=== PATIENT | female | born 1955 | race Caucasian/White ===

== ENCOUNTER 2017-10-20 08:36 | Observation (INO) ==
[2017-10-20] MEDS ORDERED: Pantoprazole 40 MG VIAL IVP ONE (09:11)
--- NOTE | 2017-10-20 09:33 | Emergency Department Note ---
Disposition Clinical Impression: Chest pain Qualifiers: Qualified Code(s): R07.9 - Disposition: Admitted As Inpatient Condition: Good Referrals: Jennifer Morin MD [Primary Care Provider] - Forms: ED Satisfaction Letter Chest Pain HPI - General Chief Complaint: ED Chest Pain Stated Complaint: chest pain Time Seen by Provider: 10/20/17 08:57 Source: patient Limitations: no limitations Vital Signs Reviewed: Yes Nursing Notes Reviewed: Yes - History of Present Illness HPI Narrative: 62 year old female presents with chest pain. pt stated it was intermittent sharp pain on her chest radiate to upper abdomen, back and left shoulder. 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 No exacerbation with activity. No cough. No chill and fever. Pt had sinus congestion and right ear pain in the past one week. She finished one course of Z-pack and prednisone without improvement. She visited urgent care last Friday and was prescribed Doxycycline. Pt denied history of hypertension and diabetes. She has family history of heart disease. Pt complaint: chest pain Onset (ago): day(s) (2) Duration: intermittent Pain Location: left chest, epigastric Severity scale (1-10): 8 Quality: sharp Pain Radiation: LUE, back Improves with: nothing Worsens with: nothing - Related Data Home Medications Medication Instructions Recorded Confirmed Estradot 37.5 mcg TD QWEEK 10/20/17 10/20/17 Fluticasone Propionate Nasal 2 spr NS DAILY 10/20/17 10/20/17 [Flonase] Loratadine [Claritin] 10 mg PO DAILY 10/20/17 10/20/17 Pseudoephedrine HCl [Sudafed] 30 mg PO Q6H PRN 10/20/17 10/20/17 predniSONE [PredniSONE] 20 mg PO DAILY 10/20/17 10/20/17 Previous Rx's Medication Instructions Recorded Doxycycline 100 mg PO BID 10 Days #20 capsule 10/17/17 Allergies Allergy/AdvReac Type Severity Reaction Status Date / Time cephalexin [From Keflex] Allergy Hives Verified 10/20/17 08:40 clindamycin Allergy Hives Verified 10/20/17 08:40 Penicillins Allergy Hives Verified 10/20/17 08:40 Sulfa (Sulfonamide Allergy Hives Verified 10/20/17 08:40 Antibiotics) Erythromycin Base [From Eryc] AdvReac Gastrointestinal Verified 10/20/17 14:56 Upset Constitutional: Denies: fever, chills, weakness Eyes: Denies: eye pain, eye discharge ENT ED: Reports: ear pain, congestion. Denies: throat pain, dental pain, hearing loss Cardiovascular: Reports: chest pain. Denies: palpitations, dyspnea on exertion , syncope Respiratory: Denies: cough, dyspnea, wheezes Gastrointestinal: Denies: abdominal pain, nausea, vomiting Genitourinary: Denies: urgency, dysuria, frequency Musculoskeletal: Denies: back pain, neck pain, joint swelling Integumentary: Denies: rash, abrasion, lesions Neurological: Denies: headache, weakness Psychiatric: Denies: anxiety, depression, suicidal thoughts Endocrine: Denies: fatigue, heat or cold intolerance Hematological/Lymphatic: Denies: easy bleeding, easy bruising Allergic/Immunologic: Denies: facial swelling, urticaria Chest Pain PMH - Past Medical History Medical history: Reports: renal disease Psychiatric history: Reports: no psych history 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 Absent: scleral icterus, conjunctival injection - Expanded ENT Exam TM/Canal: Erythema: Negative, Bulging: Negative, Effusion: Bilateral TM, Perforation: Negative Nose exam: sinus tenderness (bilateral Maxillary tender) Mouth exam: Present: normal external inspection Throat exam: Present: normal inspection, tonsillar erythema - Neck Neck exam: Present: normal inspection, full ROM, trachea midline. Absent: tenderness - Chest Chest inspection: Present: normal inspection, symmetric chest wall rise. Absent : tenderness - Respiratory Respiratory exam: Present: normal lung sounds bilaterally. Absent: respiratory distress, wheezes - Cardiovascular Cardiovascular exam: Present: regular rate, normal rhythm - Abdominal Exam Abdominal exam: Present: soft, tenderness (epigastric) - Extremities Exam Extremities exam: Present: normal inspection, full ROM. Absent: tenderness - Expanded Lower Extremity Exam Hip/Pelvis exam: Present: normal inspection, full ROM. Absent: tenderness - Back Exam Back exam: Present: normal inspection, full ROM. Absent: tenderness - Neurological Exam Neurological exam: Present: alert, oriented X3 - Psychiatric Psychiatric exam: Present: normal affect, normal mood - Skin Skin exam: Present: warm Course Vital Signs Temperature 97.8 F 10/20/17 08:40 Pulse Rate 125 10/20/17 08:40 Respiratory Rate 20 10/20/17 08:40 Blood Pressure 155/87 10/20/17 08:40 O2 Sat by Pulse Oximetry 100 10/20/17 08:40 Temperature 97.8 F 10/20/17 08:40 Pulse Rate 90 10/20/17 17:39 Respiratory Rate 18 10/20/17 17:39 Blood Pressure 121/103 10/20/17 17:39 O2 Sat by Pulse Oximetry 95 10/20/17 17:39 Oxygen Delivery Oxygen Delivery Room Air Chest Pain - MDM Narrative Medical decision making narrative: 62 year old female presents with intermittent chest pain since Friday. Pt stated it was sharp pain in her whole chest and radiate to back left shoulder and upper abdomen. No shortness of breath. 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 recently diagnosed with sinusitis. COmpleted one course of Z-pack and prednisone, started Doxycycline on Friday (after chest pain). No cough, no chill and fever. Physical exam: lung sounds clear, mild epigastric tender. unremarkable EKG, Labs: troponin, lipase, d-dimer negative, except slightly elevated white cell (13), unremarkable chest x-ray. In ED, tried pantoprazole, toradol and GI cocktail without improvement. Nitroglycerin ordered, but pt declined true chest pain in the first place. still complain of left shoulder uncomfortable. pt believes there is something wrong. Plan: admit for chest pain workup. - Lab Data Result diagrams: 10/20/17 09:34 10/20/17 09:09 Lab Results 10/20/17 10/20/17 10/20/17 Range/Units 09:09 09:34 12:38 WBC 13.5 H (4.3-11.1) K/mcL RBC 4.88 (3.82-4.97) M/mcL Hgb 14.5 (11.5-15.4) g/dL Hct 45.2 H (35.3-44.9) % MCV 92.6 (83.0-100.0) fL MCH 29.7 (28.0-33.3) pg MCHC 32.1 (31.6-35.5) g/dL RDW 15.1 H (11.5-14.5) % Plt Count 341 (140-400) K/mcL MPV 11.6 (9.4-12.4) fL Immature Gran % 1.2 (0-4) % Seg Neutrophils % 78.6 % Lymphocytes % 14.5 % Monocytes % 5.4 % Eosinophils % 0.0 % Basophils % 0.3 % Neutrophils # 10.6 H (1.6-8.9) K/mcL Lymphocytes # 2.0 (0.6-4.6) K/mcL Monocytes # 0.7 (0.0-1.3) K/mcL Eosinophils # 0.0 (0.0-0.6) K/mcL Basophils # 0.0 (0.0-0.2) K/mcL D-Dimer 223 (0-500) ng/mLFEU Sodium 138 (136-145) mEq/L Potassium 3.8 (3.5-5.1) mEq/L Chloride 104 (98-107) mEq/L Carbon Dioxide 23 (23-29) mEq/L BUN 12 (8-23) mg/dL Creatinine 0.61 (0.60-1.20) mg/dL Est GFR ( Amer) > 60 (> 60) Est GFR (Non-Af Amer) > 60 (> 60) BUN/Creatinine Ratio 20 (6-26) Glucose 116 H (70-105) mg/dL Calculated Osmolality 287 (280-300) Calcium 9.7 (8.6-10.3) mg/dL Total Bilirubin 0.6 (0.3-1.0) mg/dL AST 16 (13-39) Units/L ALT 15 (7-52) Units/L Alkaline Phosphatase 72 (34-104) Units/L Troponin I < 0.03 (< 0.04) ng/mL Serum Total Protein 7.5 (6.4-8.9) g/dL Albumin 4.7 (3.5-5.7) g/dL Globulin 2.8 (2.4-3.5) g/dL Albumin/Globulin Ratio 1.7 (1.1-2.2) Lipase 21 (11-82) Units/L Attestation Statement - Attestation Attestation: I have personally performed a face to face evaluation on this patient. I have reviewed and agree with the care plan. History and Exam by me shows: I dr llanos agree with above mid-level note pt to be admitted for acs workup vss neg enzyme
[2017-10-20 10:09] LABS: Basophils % 0.3 %; Hematocrit 45.2 % (35.3-44.9); Hemoglobin 14.5 g/dL (11.5-15.4); Immature Granulocytes % 1.2 % (0-4); Lymphocytes % 14.5 %; Mean Corpuscular HGB Conc 32.1 g/dL (31.6-35.5); Mean Corpuscular Hemoglobin 29.7 pg (28.0-33.3); Mean Corpuscular Volume 92.6 fL (83.0-100.0); Mean Platelet Volume 11.6 fL (9.4-12.4); Monocytes # 0.7 K/mcL (0.0-1.3); Monocytes % 5.4 %; Neutrophils # 10.6 K/mcL (1.6-8.9); Platelet Count 341 K/mcL (140-400); Red Blood Count 4.88 M/mcL (3.82-4.97); Red Cell Distribution Width 15.1 % (11.5-14.5); Segmented Neutrophils % 78.6 %
[2017-10-20] MEDS ORDERED: *HR* Morphine 2 MG/ML SYRINGE IVP ONE (10:10)
[2017-10-20] MEDS ORDERED: Ketorolac 30 MG/ML VIAL IVP ONE (10:15)
[2017-10-20] MEDS ORDERED: Ondansetron 4 MG/2 ML VIAL IVP ONE (10:15)
[2017-10-20 10:16] LABS: Troponin I < 0.03 ng/mL (< 0.04)
[2017-10-20 10:26] LABS: Alanine Aminotransferase 15 Units/L (7-52); Albumin 4.7 g/dL (3.5-5.7); Albumin/Globulin Ratio 1.7 (1.1-2.2); Alkaline Phosphatase 72 Units/L (34-104); Aspartate Amino Transferase 16 Units/L (13-39); BUN/Creatinine Ratio 20 (6-26); Bilirubin,Total 0.6 mg/dL (0.3-1.0); Blood Urea Nitrogen 12 mg/dL (8-23); Calcium 9.7 mg/dL (8.6-10.3); Carbon Dioxide 23 mEq/L (23-29); Chloride 104 mEq/L (98-107); Globulin 2.8 g/dL (2.4-3.5); Glucose 116 mg/dL (70-105); Lipase 21 Units/L (11-82); Osmolality,Calculated 287 (280-300); Potassium 3.8 mEq/L (3.5-5.1); Sodium 138 mEq/L (136-145); Total Protein 7.5 g/dL (6.4-8.9); eGFR For African Americans > 60 (> 60); eGFR For Non-African Americans > 60 (> 60)
[2017-10-20] MEDS ORDERED: GI Cocktail 40 ML EACH PO ONE (12:21)
[2017-10-20] MEDS ORDERED: Nitroglycerin 0.4 MG TAB.SUBL SL PRN (12:25)
--- NOTE | 2017-10-20 15:48 | Internal Med History&Physical ---
<Satya Ames - Last Filed: 10/20/17 17:28> Date of Encounter: 10/20/17 Time of Encounter: 15:46 Assessment and Plan (1) Chest pain Current visit: Yes Status: Acute Patient has known family history of cardiac disease Admits to being a former smoker; currently uses nicotine gum. Initial cardiac workup was unremarkable; troponin negative, EKG showed no ischemic changes. Plan: -Stress test -Trend troponin x3 -ECHO Qualifiers: Qualified Code(s): R07.9 - Chest pain, unspecified (2) Peptic ulcer disease Current visit: Yes Status: Acute CT scan of the abdomen and pelvis demonstrated the followin. Nonspecific mild pyloric wall thickening which may relate to nondistention versus possible peptic ulcer disease. 2. No obstruction, perforation, or abscess. The appendix is normal. 3. Mild colonic fecal retention which may relate to constipation. Patient complains of mild epigastric pain. Plan: -Avoid NSAIDS -IV protonix -Zofran -Will consult GI for scope if cardiac workup is unremarkable -H pylori antigen (3) Tobacco use disorder Current visit: Yes Status: Acute Internal Medicine - H&P: HPI Chief complaint: chest pain Admitted From: Home History of present illness: 62 year old female with a PMH of renal disease who presented to [facility] on 10/20/16 with the chief complaint of chest pain. Pain described as intermittent sharp pain on her chest radiate to upper abdomen, back and left shoulder. Has been present since Friday. 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 No SOB. No exacerbation with activity. No cough. No chill and fever. Pt had sinus congestion and right ear pain in the past one week. She finished one course of Z-pack and prednisone without improvement. She visited urgent care last Friday and was prescribed Doxycycline. Pt denied history of hypertension and diabetes. She has family history of heart disease. Vitals were as follows: Pulse rate 125, respiratory rate 20, BP 155/87. Patient was recently diagnosed with sinusitis. Completed one course of Z-pack and prednisone, started Doxycycline on Friday (after chest pain). unremarkable EKG, Labs: troponin, lipase, d-dimer negative, except slightly elevated white cell (13). CXR unremarkable. In ED, tried pantoprazole, toradol and GI cocktail without improvement. Patient was given GI cocktail, ketorolac, morphine 2mg IV, nitroglycerin 0.4 mg SL, Zofran, and protonix. CT of the abdomen and pelvis demonstrated possible PUD. Patient reports that she still has some peigastric pain. No other complaints at this time. Past Med Surg Social Fam HX - Past Medical History Medical history: renal disease Psychiatric history: no psych history - Social History Smoking Status: Never smoker Smokeless Tobacco Status: No Alcohol use: occasionally Drug use: none Internal Medicine - H&P: Meds Doxycycline 100 mg PO BID 10 Days #20 capsule 10/17/17 [Rx] Estradot 37.5 mcg TD QWEEK 10/20/17 [History] Fluticasone Propionate Nasal [Flonase] 2 spr NS DAILY 10/20/17 [History] Loratadine [Claritin] 10 mg PO DAILY 10/20/17 [History] Pseudoephedrine HCl [Sudafed] 30 mg PO Q6H PRN 10/20/17 [History] predniSONE [PredniSONE] 20 mg PO DAILY 10/20/17 [History] 3 Allergy/AdvReac Type Severity Reaction Status Date / Time cephalexin [From Keflex] Allergy Hives Verified 10/20/17 08:40 clindamycin Allergy Hives Verified 10/20/17 08:40 Penicillins Allergy Hives Verified 10/20/17 08:40 Sulfa (Sulfonamide Allergy Hives Verified 10/20/17 08:40 Antibiotics) Erythromycin Base [From Eryc] AdvReac Gastrointestinal Verified 10/20/17 14:56 Upset All Systems PM: A 10-system review of systems was performed and is negative for pertinent findings except as documented above in the HPI. - Constitutional Constitutional: no chills, no fever(s), no night sweats - EENT Eyes: no change in vision, no discharge, no pain, no photophobia Ears: no ear discharge, no ear pain, no tinnitus Nose, mouth and throat: no dysphagia, no nasal discharge, no neck pain, no sore throat - Cardiovascular Cardiovascular ROS IM: chest pain, no diaphoresis, no dyspnea, no lightheadedness, no palpitations, no syncope - Respiratory Respiratory: no cough, no dyspnea, no wheezing, no excessive phlegm production - Gastrointestinal Gastrointestinal: abdominal pain, no diarrhea, no hematemesis, no hematochezia, no melena, no nausea, no vomiting - Genitourinary Genitourinary: no change in urinary stream, no dysuria, no flank pain, no hematuria - Musculoskeletal Musculoskeletal ROS IM: no numbness, no tingling - Integumentary Integumentary IM: no rash, no unusual bruising - Hematologic/Lymphatic Hematologic/Lymphatic: no easy bruising - Constitutional Vitals: Temp Pulse Resp BP Pulse Ox 97.8 F 77 18 132/87 98 10/20/17 08:40 10/20/17 14:53 10/20/17 14:53 10/20/17 14:53 10/20/17 14:53 General appearance: Present: A&O X 3, answers questions appropriately - Head Head exam: Present: atraumatic, normocephalic - Eye Eye exam: Present: PERRL, conjuntiva pink, sclera anicteric Pupils: Present: PERRL - Neck Neck exam general surgery: Present: supple, trachea midline. Absent: lymphadenopathy - Respiratory Respiratory exam: Present: CTAB. Absent: accessory muscle use, rales, rhonchi, wheezes - Cardiovascular Cardiovascular exam: Present: RRR, +S1, +S2. Absent: diastolic murmur, gallop, rubs, systolic murmur - GI/Abdominal GI/Abdominal exam: Present: normal bowel sounds, soft, tenderness, no peritoneal signs. Absent: distended Additional comments: epigastric pain - Extremities Exam Extremities exam: Present: warm, radial pulses palpable and symmetrical. Absent : calf tenderness, cyanotic, pedal edema - Neurological Exam Neurological exam: Present: CN II-XII intact, oriented X3, no focal deficits. Absent: pronater drift, facial droop, speech deficit - Skin Skin exam: Present: dry, intact Internal Med - H&P Results - Labs CBC & Chem 7: 10/20/17 09:34 10/20/17 09:09 Labs: Short CBC 10/20/17 Range/Units 09:34 WBC 13.5 H (4.3-11.1) K/mcL Hgb 14.5 (11.5-15.4) g/dL Hct 45.2 H (35.3-44.9) % Plt Count 341 (140-400) K/mcL Neutrophils # 10.6 H (1.6-8.9) K/mcL BMP 10/20/17 09:09 Sodium 138 Potassium 3.8 Chloride 104 Carbon Dioxide 23 BUN 12 Creatinine 0.61 Glucose 116 H Calcium 9.7 Cardiac Enzymes 10/20/17 Range/Units 09:09 Troponin I < 0.03 (< 0.04) ng/mL Liver Function 10/20/17 Range/Units 09:09 Total Bilirubin 0.6 (0.3-1.0) mg/dL AST 16 (13-39) Units/L ALT 15 (7-52) Units/L Alkaline Phosphatase 72 (34-104) Units/L Albumin 4.7 (3.5-5.7) g/dL - Impressions ITS Impressions Chest X-Ray 10/20/17 09:09 IMPRESSION: COPD with no acute abnormality. D/ / 10/20/2017 09:35:24 Kai Davis MD / nichole Interpreting Provider: Kai Davis MD Abdomen/Pelvis CT 10/20/17 15:15 IMPRESSION: 1. Nonspecific mild pyloric wall thickening which may relate to nondistention versus possible peptic ulcer disease. 2. No obstruction, perforation, or abscess. The appendix is normal. 3. Mild colonic fecal retention which may relate to constipation. D/ / Kai Davis MD / Kai Davis MD Interpreting Provider: Kai Davis MD <Castro Perez - Last Filed: 10/21/17 07:56> Date of Encounter: 10/20/17 Internal Medicine - H&P: HPI History of present illness: Ms. Gastelum is a 62 year old female Past Med Surg Social Fam HX - Family History Grandfather Living Status: Hx Family Cancer: Yes Mother Living Status: Still Living Hx Family Endocrine Disorder: Yes All Systems PM: A 10-system review of systems was performed and is negative for pertinent findings except as documented above in the HPI. - Constitutional Vitals: Temp Pulse Resp BP Pulse Ox 97.4 F L 64 16 109/71 98 10/21/17 07:38 10/21/17 07:38 10/21/17 07:38 10/21/17 07:38 10/21/17 07:38 Internal Med - H&P Results - Labs CBC & Chem 7: 10/21/17 00:45 10/20/17 09:09 Labs: Short CBC 10/21/17 Range/Units 00:45 WBC 13.6 H (4.3-11.1) K/mcL Hgb 11.6 D (11.5-15.4) g/dL Hct 35.5 (35.3-44.9) % Plt Count 287 (140-400) K/mcL Neutrophils # 6.7 (1.6-8.9) K/mcL Cardiac Enzymes 10/21/17 Range/Units 00:45 Troponin I < 0.03 (< 0.04) ng/mL - Attending Attestation I examined this patient and my medical decision-making was reviewed with the Resident Physician, Dr Hernadez. I agree with the documented findings, disposition and treatment plan as described except to the extent set forth below. Patient presented to the hospital with chest pain and abdominal pain. On exam she is in no acute distress. Heart is regular. Lungs are clear. There is mild tenderness to palpation in the epigastric area. CT of the abdomen and pelvis shows findings suggestive of peptic ulcer disease. Plan: Observation. Trend troponin. Telemetry. Workup for peptic ulcer disease. Castro Perez MD
[2017-10-20] MEDS ORDERED: Naloxone 0.4 MG/ML INJ IVP PRN (17:41)
[2017-10-20] MEDS ORDERED: Ondansetron 4 MG/2 ML VIAL IVP PRN (17:47)
--- NOTE | 2017-10-20 19:32 | Event Note ---
Date of Encounter: 10/20/17 Time of Encounter: 17:00 I examined this patient and my medical decision-making was reviewed with the Resident Physician Dr Ames. I agree with the documented findings, disposition and treatment plan as described except to the extent set forth below. Patient presents to the hospital with chest pain. She reports substernal and epigastric pain, some burning. On exam she is in no acute distress. Heart is regular. Lungs are clear. EKG was personally reviewed shows sinus tachycardia [address] depressions in V4 to V6 likely rate related. Plan: We will place patient in observation. Start telemetry. Trend troponin. Obtain stress test. Obtain echocardiogram. If ACS is ruled out we will consult GI for upper endoscopy due to findings concerning for peptic ulcer disease on CT. Castro Perez MD
[2017-10-20] MEDS: Loratadine 10 MG TABLET PO SCH (19:58)
[2017-10-20] MEDS: predniSONE 20 MG TABLET PO SCH (19:58)
[2017-10-20] MEDS: Doxycycline 100 MG CAPSULE PO SCH (19:58)
[2017-10-20] MEDS: Fluticasone Propionate Nasal 50 MCG/SPRAY BOTTLE NS SCH (20:13)
[2017-10-20] MEDS: Acetaminophen 325 MG TABLET PO PRN (23:34)
[2017-10-20] MEDS: Pantoprazole 40 MG VIAL IVP SCH (23:34)
[2017-10-21 01:32] LABS: Basophils # 0.1 K/mcL (0.0-0.2); Basophils % 0.5 %; Eosinophils # 0.1 K/mcL (0.0-0.6); Eosinophils % 0.4 %; Hematocrit 35.5 % (35.3-44.9); Immature Granulocytes % 1.2 % (0-4); Lymphocytes # 5.5 K/mcL (0.6-4.6); Lymphocytes % 40.4 %; Mean Corpuscular HGB Conc 32.7 g/dL (31.6-35.5); Mean Corpuscular Hemoglobin 30.1 pg (28.0-33.3); Mean Platelet Volume 11.5 fL (9.4-12.4); Monocytes # 1.1 K/mcL (0.0-1.3); Monocytes % 8.4 %; Neutrophils # 6.7 K/mcL (1.6-8.9); Platelet Count 287 K/mcL (140-400); Red Blood Count 3.86 M/mcL (3.82-4.97); Red Cell Distribution Width 15.1 % (11.5-14.5); Segmented Neutrophils % 49.1 %
[2017-10-21 01:37] LABS: Hemoglobin 11.6 g/dL (11.5-15.4)
[2017-10-21] MEDS ORDERED: Regadenoson 0.4 MG/5 ML SYRINGE IVP ONE (06:27)
--- NOTE | 2017-10-21 10:59 | Internal Med Progress Note ---
<Satya Ames - Last Filed: 10/21/17 16:46> Date of Encounter: 10/21/17 Time of Encounter: 10:58 - Assessment and plan (1) Chest pain Current Visit: Yes Status: Acute Assessment and plan: Patient has known family history of cardiac disease Admits to being a former smoker; currently uses nicotine gum. Initial cardiac workup was unremarkable; troponin negative, EKG showed no ischemic changes. Plan: -Stress test negative -Trend troponin x3 -ECHO -Will consult GI for possible upper endoscopy -Full liquid diet Qualifiers: Qualified Code(s): R07.9 - Chest pain, unspecified (2) Peptic ulcer disease Current Visit: Yes Status: Acute Assessment and plan: CT scan of the abdomen and pelvis demonstrated the followin. Nonspecific mild pyloric wall thickening which may relate to nondistention versus possible peptic ulcer disease. 2. No obstruction, perforation, or abscess. The appendix is normal. 3. Mild colonic fecal retention which may relate to constipation. Patient complains of mild epigastric pain. Plan: -Avoid NSAIDS -IV protonix -Zofran -H pylori antigen -Will consult GI for possible upper endoscopy -Full liquid diet -RUQ U/S -Prednisone and doxycycline have been d/c (3) Acute bacterial rhinosinusitis Current Visit: No Status: Acute Assessment and plan: -Doxycycline and prednisone discontinued -Claritin 10 mg PO DAILY -Sudafed 30 mg PO Q6 PRN (4) Tobacco use disorder Current Visit: Yes Status: Acute - Subjective Interval history: 62 year old female with a PMH of renal disease who presented to [facility] on 10/20/16 with the chief complaint of chest pain. Pain described as intermittent sharp pain on her chest radiate to upper abdomen, back and left shoulder. 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 No SOB. No exacerbation with activity. No cough. No chill and fever. Pt had sinus congestion and right ear pain in the past one week. She finished one course of Z-pack and prednisone without improvement. She visited urgent care last Friday and was prescribed Doxycycline. Pt denied history of hypertension and diabetes. She has family history of heart disease. Vitals were as follows: Pulse rate 125, respiratory rate 20, BP 155/87. Patient was recently diagnosed with sinusitis. Completed one course of Z-pack and prednisone, started Doxycycline on Friday (after chest pain). unremarkable EKG, Labs: troponin, lipase, d-dimer negative, except slightly elevated white cell (13). CXR unremarkable. In ED, tried pantoprazole, toradol and GI cocktail without improvement. Patient was given GI cocktail, ketorolac, morphine 2mg IV, nitroglycerin 0.4 mg SL, Zofran, and protonix. CT of the abdomen and pelvis demonstrated possible PUD. Patient reports that she still has some epigastric pain. Also complains of sinus pain and pressure. No other complaints at this time. - Constitutional Vitals: Temp Pulse Resp BP Pulse Ox 97.4 F L 64 16 109/71 98 10/21/17 07:38 10/21/17 07:38 10/21/17 07:38 10/21/17 07:38 10/21/17 07:38 General appearance: Present: A&O X 3, answers questions appropriately - Head Head exam: Present: atraumatic, normocephalic - Eye Eye exam: Present: PERRL, conjuntiva pink, sclera anicteric Pupils: Present: PERRL - Neck Neck exam general surgery: Present: supple, trachea midline. Absent: lymphadenopathy - Respiratory Respiratory exam: Present: CTAB. Absent: accessory muscle use, rales, rhonchi, wheezes - Cardiovascular Cardiovascular exam: Present: RRR, +S1, +S2. Absent: diastolic murmur, gallop, rubs, systolic murmur - GI/Abdominal GI/Abdominal exam: Present: normal bowel sounds, soft, tenderness, no peritoneal signs. Absent: distended Additional comments: Epigastric pain, non-reproducible by palpation - Extremities Exam Extremities exam: Present: warm, radial pulses palpable and symmetrical. Absent : calf tenderness, cyanotic, pedal edema - Neurological Exam Neurological exam: Present: CN II-XII intact, oriented X3, no focal deficits. Absent: pronater drift, facial droop, speech deficit - Skin Skin exam: Present: dry, intact Internal Medicine: Result - Labs CBC & Chem 7: 10/21/17 00:45 10/20/17 09:09 Labs: Short CBC 10/21/17 Range/Units 00:45 WBC 13.6 H (4.3-11.1) K/mcL Hgb 11.6 D (11.5-15.4) g/dL Hct 35.5 (35.3-44.9) % Plt Count 287 (140-400) K/mcL Neutrophils # 6.7 (1.6-8.9) K/mcL Cardiac Enzymes 10/21/17 Range/Units 00:45 Troponin I < 0.03 (< 0.04) ng/mL - ABG Interpretation ABG results: PT/INR, D-dimer D-Dimer 223 ng/mLFEU (0-500) 10/20/17 12:38 Consult Discharge Plan - Plan Referrals: Jennifer Morin MD [Primary Care Provider] - 10/29/17 1:45 pm <Reece Jessica - Last Filed: 10/21/17 18:56> Date of Encounter: 10/21/17 - Constitutional Vitals: Temp Pulse Resp BP Pulse Ox 98.3 F 67 17 103/70 96 10/21/17 16:12 10/21/17 16:12 10/21/17 16:12 10/21/17 16:12 10/21/17 16:12 Internal Medicine: Result - Labs CBC & Chem 7: 10/21/17 00:45 10/20/17 09:09 Labs: Short CBC 10/21/17 Range/Units 00:45 WBC 13.6 H (4.3-11.1) K/mcL Hgb 11.6 D (11.5-15.4) g/dL Hct 35.5 (35.3-44.9) % Plt Count 287 (140-400) K/mcL Neutrophils # 6.7 (1.6-8.9) K/mcL Cardiac Enzymes 10/21/17 Range/Units 00:45 Troponin I < 0.03 (< 0.04) ng/mL - ABG Interpretation ABG results: PT/INR, D-dimer D-Dimer 223 ng/mLFEU (0-500) 10/20/17 12:38 - Impressions Impressions Echocardiogram 10/21/17 17:28 Impressions: LVEF 60-65%. Normal LV chamber size, wall thickness and function. Normal left ventricular diastolic function. Normal right ventricular structure and function. No evidence of pulmonary hypertension. No significant valvular dysfunction. Left Ventricular Wall Motion: Rest Echo Findings All wall segments showed normal motion. Findings: Study Quality * Technically adequate exam. ECG Findings * Normal sinus rhythm. Left Ventricle * LVEF 60-65%. * Normal LV chamber size, wall thickness and function. * Normal left ventricular diastolic function. Right Ventricle * Normal right ventricular structure and function. Left Atrium * Normal left atrial size. Right Atrium * Normal right atrial size. Interatrial Septum * Interatrial septum not well evaluated. Aortic Valve * Trileaflet aortic valve with normal function. * No aortic regurgitation. * No aortic stenosis. Mitral Valve * Mildly thickened mitral valve leaflets. * No mitral stenosis. * No mitral regurgitation. Tricuspid Valve * Normal tricuspid valve structure and function. * Trace tricuspid regurgitation. * No evidence of pulmonary hypertension. Pulmonic Valve * Pulmonic valve is not well visualized. * No pulmonic regurgitation. Aorta * Normally sized aortic root. Pericardium * The pericardium appears normal. IVC * Normal IVC dimensions and inspiratory collapse. Pulmonary Artery * Normal visualized portions of the main pulmonary artery. - Attending Attestation I examined this patient and my medical decision-making was reviewed with the Resident Physician. I agree with the documented findings, disposition and treatment plan as described except to the extent set forth below. There is some nonspecific thickening around the pylorus, while here in the hospital, this needs to be evaluated with upper endoscopy, therefore we will have GI see her. Biliary causes such as cholelithiasis need to be considered as well. Her exam is not consistent with acute cholecystitis.
[2017-10-21] MEDS: Fluticasone Propionate Nasal 50 MCG/SPRAY BOTTLE NS SCH (12:44)
[2017-10-21] MEDS: Doxycycline 100 MG CAPSULE PO SCH (12:45)
[2017-10-21] MEDS: Pantoprazole 40 MG VIAL IVP SCH ×2 (12:45→19:35)
[2017-10-21] MEDS: predniSONE 20 MG TABLET PO SCH (12:45)
[2017-10-21] MEDS: Loratadine 10 MG TABLET PO SCH (12:45)
--- NOTE | 2017-10-21 14:16 | Electrocardiograph Report ---
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
[2017-10-22] MEDS: Pantoprazole 40 MG VIAL IVP SCH ×2 (09:11→20:18)
[2017-10-22] MEDS: Fluticasone Propionate Nasal 50 MCG/SPRAY BOTTLE NS SCH (09:11)
[2017-10-22] MEDS: Loratadine 10 MG TABLET PO SCH (09:11)
--- NOTE | 2017-10-22 11:52 | Internal Med Progress Note ---
<Satya Ames - Last Filed: 10/22/17 16:41> Date of Encounter: 10/22/17 Time of Encounter: 11:47 - Assessment and plan (1) Abnormal CT of the abdomen Current Visit: Yes Status: Acute Assessment and plan: CT scan of the abdomen and pelvis demonstrated the followin. Nonspecific mild pyloric wall thickening which may relate to nondistention versus possible peptic ulcer disease. 2. No obstruction, perforation, or abscess. The appendix is normal. 3. Mild colonic fecal retention which may relate to constipation. Patient complains of mild epigastric pain. RUQ U/S: 1. No acute sonographic findings in the right upper quadrant. 2. Minimal hepatic steatosis. Plan: -Avoid NSAIDS -IV protonix -Zofran -H pylori antigen -Will consult GI for possible upper endoscopy -Full liquid diet -Prednisone and doxycycline have been d/c (2) Chest pain Current Visit: Yes Status: Acute Assessment and plan: Patient has known family history of cardiac disease Admits to being a former smoker; currently uses nicotine gum. Initial cardiac workup was unremarkable; troponin negative, EKG showed no ischemic changes. ECHO showed the following: -LVEF 60-65%. -Normal LV chamber size, wall thickness and function. -Normal left ventricular diastolic function. -Normal right ventricular structure and function. -No evidence of pulmonary hypertension. -No significant valvular dysfunction. Plan: -Stress test negative -Will consult GI for possible upper endoscopy -Full liquid diet Qualifiers: Qualified Code(s): R07.9 - Chest pain, unspecified (3) Acute bacterial rhinosinusitis Current Visit: No Status: Acute Assessment and plan: -Doxycycline and prednisone discontinued -Claritin 10 mg PO DAILY -Sudafed 30 mg PO Q6 PRN (4) Tobacco use disorder Current Visit: Yes Status: Acute - Subjective Interval history: Patient was seen and examined at bedside this morning. Reports having pain in her sinuses. Denies having any chest pain or abdominal pain. Denies GI distress. No further complaints at this time. - Constitutional Vitals: Temp Pulse Resp BP Pulse Ox 98.8 F 63 16 114/76 95 10/22/17 11:00 10/22/17 11:00 10/22/17 11:00 10/22/17 11:00 10/22/17 11:00 General appearance: Present: A&O X 3, answers questions appropriately - Head Head exam: Present: atraumatic, normocephalic - Eye Eye exam: Present: PERRL, conjuntiva pink, sclera anicteric Pupils: Present: PERRL - Neck Neck exam general surgery: Present: supple, trachea midline. Absent: lymphadenopathy - Respiratory Respiratory exam: Present: CTAB. Absent: accessory muscle use, rales, rhonchi, wheezes - Cardiovascular Cardiovascular exam: Present: RRR, +S1, +S2. Absent: diastolic murmur, gallop, rubs, systolic murmur - GI/Abdominal GI/Abdominal exam: Present: normal bowel sounds, soft, no peritoneal signs. Absent: distended, tenderness - Extremities Exam Extremities exam: Present: warm, radial pulses palpable and symmetrical. Absent : calf tenderness, cyanotic, pedal edema - Neurological Exam Neurological exam: Present: CN II-XII intact, oriented X3, no focal deficits. Absent: pronater drift, facial droop, speech deficit - Skin Skin exam: Present: dry, intact Internal Medicine: Result - Labs CBC & Chem 7: 10/21/17 00:45 10/20/17 09:09 - ABG Interpretation ABG results: PT/INR, D-dimer D-Dimer 223 ng/mLFEU (0-500) 10/20/17 12:38 - Impressions Impressions Echocardiogram 10/21/17 17:28 Impressions: LVEF 60-65%. Normal LV chamber size, wall thickness and function. Normal left ventricular diastolic function. Normal right ventricular structure and function. No evidence of pulmonary hypertension. No significant valvular dysfunction. Left Ventricular Wall Motion: Rest Echo Findings All wall segments showed normal motion. Findings: Study Quality * Technically adequate exam. ECG Findings * Normal sinus rhythm. Left Ventricle * LVEF 60-65%. * Normal LV chamber size, wall thickness and function. * Normal left ventricular diastolic function. Right Ventricle * Normal right ventricular structure and function. Left Atrium * Normal left atrial size. Right Atrium * Normal right atrial size. Interatrial Septum * Interatrial septum not well evaluated. Aortic Valve * Trileaflet aortic valve with normal function. * No aortic regurgitation. * No aortic stenosis. Mitral Valve * Mildly thickened mitral valve leaflets. * No mitral stenosis. * No mitral regurgitation. Tricuspid Valve * Normal tricuspid valve structure and function. * Trace tricuspid regurgitation. * No evidence of pulmonary hypertension. Pulmonic Valve * Pulmonic valve is not well visualized. * No pulmonic regurgitation. Aorta * Normally sized aortic root. Pericardium * The pericardium appears normal. IVC * Normal IVC dimensions and inspiratory collapse. Pulmonary Artery * Normal visualized portions of the main pulmonary artery. Abdomen Ultrasound 10/22/17 08:00 IMPRESSION: 1. No acute sonographic findings in the right upper quadrant. 2. Minimal hepatic steatosis. D/ / Timoteo Kerr MD / Timoteo Kerr MD Interpreting Provider: Timoteo Kerr MD Consult Discharge Plan - Plan Referrals: Jennifer Morin MD [Primary Care Provider] - 10/29/17 1:45 pm <Reece Jessica - Last Filed: 10/22/17 17:57> Date of Encounter: 10/22/17 - Constitutional Vitals: Temp Pulse Resp BP Pulse Ox 99.1 F 64 20 105/69 95 10/22/17 15:24 10/22/17 15:24 10/22/17 15:24 10/22/17 15:24 10/22/17 15:24 Internal Medicine: Result - Labs CBC & Chem 7: 10/21/17 00:45 10/20/17 09:09 - ABG Interpretation ABG results: PT/INR, D-dimer D-Dimer 223 ng/mLFEU (0-500) 10/20/17 12:38 - Impressions Impressions Abdomen Ultrasound 10/22/17 08:00 IMPRESSION: 1. No acute sonographic findings in the right upper quadrant. 2. Minimal hepatic steatosis. D/ / Timotoe Kerr MD / Timoteo eKrr MD Interpreting Provider: Timoteo Kerr MD - Attending Attestation I examined this patient and my medical decision-making was reviewed with the Resident Physician. I agree with the documented findings, disposition and treatment plan as described except to the extent set forth below. Her headache is still somewhat significant, we will going CAT scan of sinuses today. Awaiting upper endoscopy given the CT abnormalities. There is a good chance it could be quite normal. Lab work to be checked to exclude temporal arteritis, our suspicion is quite low.
--- NOTE | 2017-10-22 11:57 | Gastroenterology Consult Note ---
<GonzalesTimoteo Suero - Last Filed: 10/22/17 11:55> Date of Encounter: 10/22/17 Time of Encounter: 11:20 - Assessment and plan (1) Epigastric pain Current Visit: Yes Status: Acute Assessment and plan: CT A/P with possible PUD. Continue PPI. Plan for EGD today to r/o esophagitis, gastritis, duodenitis, PUD, MW tear, or AVM. (2) Abnormal CT of the abdomen Current Visit: Yes Status: Acute Assessment and plan: CT A/P with nonspecific mild pyloric wall thickening possible peptic ulcer disease. Continue PPI and plan for EGD. - Time Spent With Patient Total time spent is greater than 50% in coordination of care (as documented) at patient's floor/unit and/or counseling patient: GI History of Present Illness - Data of Consult Patient: new to practice Consult date: 10/22/17 Requesting Physician: Zahira Garcia CNP - Consult Narrative Reason for consult: Peptic ulcer History of present illness: Ms. Gastelum is a 62 year old female with PMHx of renal disease presented with complaint of chest pain since Friday that is associated with mild nausea. She denies fever, chills, shortness of breath, BROOKE, vomiting, diarrhea, melena, or hematochezia. In ED, tried pantoprazole, toradol and GI cocktail without improvement. CT A/P with nonspecific mild pyloric wall thickening possible peptic ulcer disease, constipation. Stress test was negative for ischemia and troponins were negative. We were consulted to rule out PUD. Procedures: None NSAIDs: None Anticoagulation: None Past Med Surg Social Fam HX - Past Medical History Medical history: renal disease Psychiatric history: no psych history - Past Surgical History Surgical History: hysterectomy - Social History Smoking Status: Former smoker Smokeless Tobacco Status: No Alcohol use: occasionally Drug use: none, other - Family History Grandfather Living Status: Hx Family Cancer: Yes Mother Living Status: Still Living Hx Family Endocrine Disorder: Yes - Gastrointestinal Gastrointestinal: Present: as per HPI - Constitutional Constitutional: as per HPI - EENT Eyes: as per HPI Ears: Present: as per HPI Nose, mouth and throat: Present: as per HPI - Cardiovascular Cardiovascular ROS: Present: as per HPI - Respiratory Respiratory IM: Present: as per HPI - Genitourinary Genitourinary: Absent: change in color, Urinary frequency - Neurological ROS Neurological GI: Present: as per HPI - Hematologic/Lymphatic Hematologic/Lymphatic pediatric: Present: as per HPI - Musculoskeletal Musculoskeletal ROS GI: Present: as per HPI - Integumentary Integumentary GI: Present: as per HPI - Psychiatric ROS Psychiatric GI: Present: as per HPI - Endocrine Endocrine IM: Present: as per HPI - Constitutional Vitals: Temp Pulse Resp BP Pulse Ox 98.8 F 63 16 114/76 95 10/22/17 11:00 10/22/17 11:00 10/22/17 11:00 10/22/17 11:00 10/22/17 11:00 General appearance: Present: cooperative, A&O X 3, no acute distress, answers questions appropriately - Head Head exam: Present: atraumatic, normocephalic - Eye Eye exam: Present: normal appearance, sclera anicteric - ENT ENT exam: Present: mucous membranes dry - Neck Neck exam general surgery: Present: normal inspection, trachea midline - Respiratory Respiratory exam: Present: CTAB. Absent: rales, rhonchi - Cardiovascular Cardiovascular exam: Present: RRR, +S1, +S2 - GI/Abdominal GI/Abdominal exam: Present: soft, tenderness (epigastric), no peritoneal signs. Absent: distended, firm, guarding - Rectal Rectal exam: Present: deferred - Extremities Exam Extremities exam: Present: warm - Neurological Exam Neurological exam: Present: no focal deficits - Psychiatric Psychiatric exam: Present: normal affect, normal mood - Skin Skin exam: Present: dry, intact, normal color, warm Results - Labs CBC & Chem 7: 10/21/17 00:45 10/20/17 09:09 Labs: Last Result Calcium 9.7 mg/dL (8.6-10.3) 10/20/17 09:09 Troponin I < 0.03 ng/mL (< 0.04) 10/21/17 00:45 Entire Visit Hgb 11.6 g/dL (11.5-15.4) D 10/21/17 00:45 Hct 35.5 % (35.3-44.9) 10/21/17 00:45 Total Bilirubin 0.6 mg/dL (0.3-1.0) 10/20/17 09:09 AST 16 Units/L (13-39) 10/20/17 09:09 ALT 15 Units/L (7-52) 10/20/17 09:09 Lipase 21 Units/L (11-82) 10/20/17 09:09 - ABG ABG results: PT/INR, D-dimer D-Dimer 223 ng/mLFEU (0-500) 10/20/17 12:38 - Impressions Impressions Echocardiogram 10/21/17 17:28 Impressions: LVEF 60-65%. Normal LV chamber size, wall thickness and function. Normal left ventricular diastolic function. Normal right ventricular structure and function. No evidence of pulmonary hypertension. No significant valvular dysfunction. Left Ventricular Wall Motion: Rest Echo Findings All wall segments showed normal motion. Findings: Study Quality * Technically adequate exam. ECG Findings * Normal sinus rhythm. Left Ventricle * LVEF 60-65%. * Normal LV chamber size, wall thickness and function. * Normal left ventricular diastolic function. Right Ventricle * Normal right ventricular structure and function. Left Atrium * Normal left atrial size. Right Atrium * Normal right atrial size. Interatrial Septum * Interatrial septum not well evaluated. Aortic Valve * Trileaflet aortic valve with normal function. * No aortic regurgitation. * No aortic stenosis. Mitral Valve * Mildly thickened mitral valve leaflets. * No mitral stenosis. * No mitral regurgitation. Tricuspid Valve * Normal tricuspid valve structure and function. * Trace tricuspid regurgitation. * No evidence of pulmonary hypertension. Pulmonic Valve * Pulmonic valve is not well visualized. * No pulmonic regurgitation. Aorta * Normally sized aortic root. Pericardium * The pericardium appears normal. IVC * Normal IVC dimensions and inspiratory collapse. Pulmonary Artery * Normal visualized portions of the main pulmonary artery. Abdomen Ultrasound 10/22/17 08:00 IMPRESSION: 1. No acute sonographic findings in the right upper quadrant. 2. Minimal hepatic steatosis. D/ / Timoteo Kerr MD / Timoteo Kerr MD Interpreting Provider: Timoteo Kerr MD Consult Discharge Plan - Plan Referrals: Jennifer Morin MD [Primary Care Provider] - 10/29/17 1:45 pm <Dmitry Wren - Last Filed: 10/22/17 19:56> Date of Encounter: 10/22/17 Time of Encounter: 18:00 - Time Spent With Patient Total time spent is greater than 50% in coordination of care (as documented) at patient's floor/unit and/or counseling patient: GI History of Present Illness - Data of Consult Requesting Physician: Zahira Garcia CNP - Consult Narrative History of present illness: Ms. Gastelum is a 62 year old female - Constitutional Vitals: Temp Pulse Resp BP Pulse Ox 99.1 F 70 16 111/66 92 10/22/17 15:24 10/22/17 19:00 10/22/17 19:00 10/22/17 19:00 10/22/17 19:00 Results - Labs CBC & Chem 7: 10/21/17 00:45 10/20/17 09:09 Labs: Last Result Calcium 9.7 mg/dL (8.6-10.3) 10/20/17 09:09 Troponin I < 0.03 ng/mL (< 0.04) 10/21/17 00:45 Entire Visit Hgb 11.6 g/dL (11.5-15.4) D 10/21/17 00:45 Hct 35.5 % (35.3-44.9) 10/21/17 00:45 Total Bilirubin 0.6 mg/dL (0.3-1.0) 10/20/17 09:09 AST 16 Units/L (13-39) 10/20/17 09:09 ALT 15 Units/L (7-52) 10/20/17 09:09 Lipase 21 Units/L (11-82) 10/20/17 09:09 - ABG ABG results: PT/INR, D-dimer D-Dimer 223 ng/mLFEU (0-500) 10/20/17 12:38 - Impressions Impressions Abdomen Ultrasound 10/22/17 08:00 IMPRESSION: 1. No acute sonographic findings in the right upper quadrant. 2. Minimal hepatic steatosis. D/ / Timoteo Kerr MD / Timoteo Kerr MD Interpreting Provider: Timoteo Kerr MD - Attending Attestation I have personally performed a face to face evaluation on this patient. I have reviewed and agree with the care plan. History and Exam by me shows: Impression epigastric pain and abnormal CAT scan of the stomach concerning for peptic ulcer disease, recommendation: EGD today
[2017-10-22] MEDS ORDERED: *HR* FentaNYL (PF) 100 MCG/2 ML VIAL IVP ONE (18:40)
[2017-10-22] MEDS ORDERED: *HR* Midazolam HCl 2 MG/2 ML VIAL IVP ONE (18:40)
[2017-10-22] MEDS ORDERED: Tetracaine/Benzocaine/Butamben 200MG/SPRAY (100SPY/BOT) MM ONE (18:40)
[2017-10-22] MEDS ORDERED: Simethicone 40 MG/0.6 ML MLS IR ONE (18:40)
--- NOTE | 2017-10-22 18:41 | Pre-Sedation Evaluation ---
Pre-sedation evaluation - Pre-sedation checklist Date of procedure: 10/22/17 Recent Vitals: Last Vital Signs Temp 99.1 F 10/22/17 15:24 Pulse 66 10/22/17 18:25 Resp 16 10/22/17 18:25 BP 113/72 10/22/17 18:25 Pulse Ox 100 10/22/17 18:25 ASA Classification *see protocol: CLASS II-Mild systemic disease Plan of Care: Pt appropriate candidate for procedure/moderate/conscious sedation , Risks/benefits of procedure/sedation discussed w/ patient/family
[2017-10-22] MEDS ORDERED: *HR* FentaNYL (PF) 100 MCG/2 ML VIAL ONE (18:42)
[2017-10-22] MEDS ORDERED: *HR* Midazolam HCl 5 MG/5 ML VIAL IVP ONE (18:42)
[2017-10-22] MEDS: Acetaminophen 325 MG TABLET PO PRN (22:07)
[2017-10-23] MEDS: Loratadine 10 MG TABLET PO SCH (09:28)
[2017-10-23] MEDS: Pantoprazole 40 MG VIAL IVP SCH (09:28)
[2017-10-23] MEDS: Fluticasone Propionate Nasal 50 MCG/SPRAY BOTTLE NS SCH (09:28)
--- NOTE | 2017-10-23 11:26 | Discharge Summary ---
<Satya Ames - Last Filed: 10/23/17 12:55> Orders not resulted at time of discharge: Pending orders 10/21/17 06:04 NM bryant perf SPECT multi [NM] Routine 10/22/17 19:03 Surgical Pathology [PTH] Routine Date of Encounter: 10/23/17 Time of Encounter: 11:20 - Discharge Diagnosis (1) Abnormal CT of the abdomen Priority: Primary Status: Acute (2) Chest pain Priority: Secondary Status: Acute Qualifiers: Qualified Code(s): R07.9 - Chest pain, unspecified (3) Acute bacterial rhinosinusitis Priority: Secondary Status: Acute (4) Tobacco use disorder Priority: Secondary Status: Acute Hospital course: Mrs. Gastelum 62 year old female with a PMH of renal disease who presented to [facility] on 10/20/16 with the chief complaint of chest pain. Pain described as intermittent sharp pain on her chest radiate to upper abdomen, back and left shoulder. 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 No SOB. No exacerbation with activity. No cough. No chill and fever. Pt had sinus congestion and right ear pain in the past one week. She finished one course of Z -pack and prednisone without improvement. She visited urgent care last Friday and was prescribed Doxycycline. Pt denied history of hypertension and diabetes. She has family history of heart disease. Vitals were as follows: Pulse rate 125 , respiratory rate 20, BP 155/87. Patient had recently been diagnosed with sinusitis. Completed one course of Z- pack and prednisone, started Doxycycline on Friday (after chest pain). Unremarkable EKG, Labs: troponin, lipase, d-dimer negative, except slightly elevated white cell (13). CXR unremarkable. In ED, tried pantoprazole, toradol and GI cocktail without improvement. Full cardiac workup was completed. Echocardiogram was obtained, showed no abnormalities. Stress test was negative. Troponins were negative. Abdominal CT scan was obtained. This demonstrated possible peptic ulcer disease. GI was consulted for EGD. EGD demonstrated normal esophagus, nonbleeding gastric ulcers with no stigmata of bleeding. Sample was taken. Results are pending. Patient also complained of sinus pain when she was in the hospital. She stated that she felt pressure in her ears, and that she felt a very uncomfortable tingling sensation in her sinuses, which she described as bugs crawling inside of her nose. CT of the sinuses with obtained. It demonstrated no signs of sinusitis. Patient would likely benefit from ENT in the outpatient setting. Patient will be prescribed omeprazole and Esgic. Patient only complains of sinus discomfort on date of discharge. Both chest and abdominal pain have resolved. - Time Spent with Patient Total time spent providing and/or coordinating discharge services: Greater than 30 minutes (41 minutes) - Discharge Medications Prescriptions: Butalb/Acetaminophen/Caffeine [Esgic Capsule] 1 each PO DAILY PRN #15 capsule PRN Reason: Headache Omeprazole [PriLOSEC] 20 mg PO DAILY 30 Days #30 cap Home Medications: Doxycycline 100 mg PO BID 10 Days #20 capsule 10/17/17 [Rx] Estradot 37.5 mcg TD QWEEK 10/20/17 [History] Fluticasone Propionate Nasal [Flonase] 2 spr NS DAILY 10/20/17 [History] Loratadine [Claritin] 10 mg PO DAILY 10/20/17 [History] Pseudoephedrine HCl [Sudafed] 30 mg PO Q6H PRN 10/20/17 [History] predniSONE [PredniSONE] 20 mg PO DAILY 10/20/17 [History] Butalb/Acetaminophen/Caffeine [Esgic Capsule] 1 each PO DAILY PRN #15 capsule [Rx] Omeprazole [PriLOSEC] 20 mg PO DAILY 30 Days #30 cap 10/23/17 [Rx] Allergies/Adverse Reactions: 3 Allergy/AdvReac Type Severity Reaction Status Date / Time cephalexin [From Keflex] Allergy Hives Verified 10/20/17 08:40 clindamycin Allergy Hives Verified 10/20/17 08:40 Penicillins Allergy Hives Verified 10/20/17 08:40 Sulfa (Sulfonamide Allergy Hives Verified 10/20/17 08:40 Antibiotics) Erythromycin Base [From Eryc] AdvReac Gastrointestinal Verified 10/20/17 14:56 Upset Date of admission: 10/20/17 18:17 Primary care physician: Jennifer Morin Consults: 10/21/17 16:51 Consult to Gastroenterology [CONS] Routine Consulting Provider: Gastroenterology Amelia Reason for Consult: upper endoscopy to evaluate for peptic ulcers Call Completed: No Discharging clinician: Satya Ames Anticipated date of discharge: 10/23/17 - Constitutional Vitals: Temp Pulse Resp BP Pulse Ox 97.9 F 65 16 103/69 99 10/23/17 06:37 10/23/17 06:37 10/23/17 06:37 10/23/17 06:37 10/23/17 06:37 General appearance: Present: A&O X 3, answers questions appropriately - Head Head exam: Present: atraumatic, normocephalic - Eye Eye exam: Present: PERRL, conjuntiva pink, sclera anicteric Pupils: Present: PERRL - Neck Neck exam general surgery: Present: supple, trachea midline. Absent: lymphadenopathy - Respiratory Respiratory exam: Present: CTAB. Absent: accessory muscle use, rales, rhonchi, wheezes - Cardiovascular Cardiovascular exam: Present: RRR, +S1, +S2. Absent: diastolic murmur, gallop, rubs, systolic murmur - GI/Abdominal GI/Abdominal exam: Present: normal bowel sounds, soft, no peritoneal signs. Absent: distended, tenderness - Extremities Exam Extremities exam: Present: warm, radial pulses palpable and symmetrical. Absent : calf tenderness, cyanotic, pedal edema - Neurological Exam Neurological exam: Present: CN II-XII intact, oriented X3, no focal deficits. Absent: pronater drift, facial droop, speech deficit - Skin Skin exam: Present: dry, intact - Patient Status Disposition: Home, Self-Care Condition: Good Overall status at discharge: patient is progressing back to baseline - Discharge Instructions Instructions: Chest Pain (DC), Peptic Ulcer (DC) Follow Up With: Jennifer Morin MD [Primary Care Provider] - 10/29/17 1:45 pm - Diet and Activity Activity: increase activity as tolerated Diet: advance to your usual diet <Reece Jessica - Last Filed: 10/23/17 18:55> Orders not resulted at time of discharge: Pending orders 10/21/17 06:04 NM bryant perf SPECT multi [NM] Routine 10/22/17 19:03 Surgical Pathology [PTH] Routine Date of Encounter: 10/23/17 Hospital course: Ms. Gastelum is a 62 year old female - Time Spent with Patient Total time spent providing and/or coordinating discharge services: Date of admission: 10/20/17 18:17 Primary care physician: Jennifer Morin Consults: 10/21/17 16:51 Consult to Gastroenterology [CONS] Routine Consulting Provider: Gastroenterology Amelia Reason for Consult: upper endoscopy to evaluate for peptic ulcers Call Completed: No - Constitutional Vitals: Temp Pulse Resp BP Pulse Ox 98.0 F 65 18 122/72 99 10/23/17 11:41 10/23/17 11:41 10/23/17 11:41 10/23/17 11:41 10/23/17 11:41 - Attending Attestation I examined this patient and my medical decision-making was reviewed with the Resident Physician. I agree with the documented findings, disposition and treatment plan as described except to the extent set forth below.
[2017-10-23 11:43] VITALS: BP 122/72
[2017-10-23] MEDS: Acetaminophen 325 MG TABLET PO PRN (12:15)
== END 2017-10-23 13:35 | disposition home or self-care (01) ==
LOC: 3BNU 08:36 → EMEROO 08:36 → 3BNU 18:48
PROVIDERS: ADMIT Internal Medicine; ATTEND Registered Nurse
PROC: ENDOEBX (2017-10-22 14:00)